=== PATIENT | male | born 1960 | race Caucasian/White ===

== ENCOUNTER → 2018-08-20 | Outpatient (CLI) | payer BC ==
[~2018-08-20] MED LIST: INDO50CA5 PO
== END | disposition home or self-care (01) ==
LOC: STAR 08:22
PROVIDERS: ATTEND Orthopaedic Surgery
DX: Z02.9 Encounter for administrative examinations, unspecified (principal)

== ENCOUNTER 2018-08-27 08:25 | Day surgery (SDC) | payer BC ==
[~2018-08-27] VITALS: Ht 172.7 cm; Wt 99.9 kg
[~2018-08-27 08:25] MED LIST changes: +LIDOCAINE 1%-EPI 1:100K, 50ML ONE; +ROPIvacaine/PF 0.5%, 30 ML ONE
[2018-08-27] MEDS ORDERED: LACTATED RINGERS 1,000 ML IV SCH (08:39)
[2018-08-27] MEDS ORDERED: MIDAZOLAM 1 MG/ML, 2ML ONE (08:54)
[2018-08-27] MEDS ORDERED: FENTANYL PF 250 MCG/5ML ONE (08:54)
[2018-08-27] MEDS ORDERED: PROPOFOL 10 MG/ML, 20ML ONE (08:55)
[2018-08-27] MEDS ORDERED: CEFAZOLIN 1,000 MG ONE ×2 (08:56)
[2018-08-27] MEDS ORDERED: PROMETHAZINE 25 MG/ML, 1ML IM PRN ×2 (09:00)
[2018-08-27] MEDS ORDERED: hydrALAzine 20 MG/ML, 1ML IV PRN (09:00)
[2018-08-27] MEDS ORDERED: MEPERIDINE/PF 25MG/0.5ML IVPush PRN (09:00)
[2018-08-27] MEDS ORDERED: PROMETHAZINE 25 MG SUPP PR PRN (09:00)
[2018-08-27] MEDS ORDERED: ACETAMINOPHEN 325 MG TABLET PO PRN (09:00)
[2018-08-27] MEDS ORDERED: PROMETHAZINE 25 MG/ML, 1ML IV PRN (09:00)
[2018-08-27] MEDS ORDERED: OXYcodone 5 MG/5 ML ORAL.SOL UDC PO PRN (09:00)
[2018-08-27] MEDS ORDERED: HYDROmorphone 2 MG/ML, 1ML IVPush PRN (09:00)
[2018-08-27] MEDS ORDERED: ONDANSETRON 2MG/ML, 2ML IV PRN (09:00)
[2018-08-27] MEDS ORDERED: ONDANSETRON ODT 8 MG PO PRN (09:00)
[2018-08-27] MEDS ORDERED: PROMETHAZINE 12.5 MG SUPP PR PRN (09:00)
[2018-08-27] MEDS ORDERED: MORPHINE SULFATE 4 MG/ML, 1ML IVPush PRN (09:00)
[2018-08-27] MEDS ORDERED: LABETALOL 5MG/ML, 20ML IV PRN (09:00)
[2018-08-27 09:07] VITALS: BP 148/96
[2018-08-27] MEDS ORDERED: KETOROLAC 30 MG/1 ML ONE (10:15)
[2018-08-27] MEDS ORDERED: FENTANYL PF 100 MCG/2ML ONE (10:58)
[2018-08-27] MEDS ORDERED: ACETAMINOPHEN 650 MG/20.3 ML UDC ONE (10:58)
[2018-08-27] MEDS ORDERED: OXYcodone 5 MG/5 ML ORAL.SOL UDC ONE (10:59)
[2018-08-27] MEDS: FENTANYL PF 100 MCG/2ML IV PRN ×2 (11:00→11:11)
== END 2018-08-27 12:30 | disposition home or self-care (01) ==
LOC: OUT 08:25
PROVIDERS: ATTEND Orthopaedic Surgery
DX: S83.232A Complex tear of medial meniscus, current injury, left knee, initial encounter (principal); S83.282A Other tear of lateral meniscus, current injury, left knee, initial encounter; M94.262 Chondromalacia, left knee; K21.9 Gastro-esophageal reflux disease without esophagitis; X58.XXXA Exposure to other specified factors, initial encounter; Y93.89 Activity, other specified
CPT/HCPCS: 29880; J0690; J1885; J2250; J2704; J2795; J3010; J7120